=== PATIENT | female | born 1990 | race African-American/Black ===

== ENCOUNTER 2020-06-19 14:13 | Emergency (ER) | payer BC ==
[~2020-06-19] VITALS: Ht 172.7 cm; Wt 101.2 kg
== END 2020-06-19 19:25 | disposition home or self-care (01) ==
LOC: ER 14:13
DX: O26.851 Spotting complicating pregnancy, first trimester (principal); Z3A.01 Less than 8 weeks gestation of pregnancy; Z20.828 Contact with and (suspected) exposure to other viral communicable diseases